=== PATIENT | male | born 1935 | race Caucasian/White ===

== ENCOUNTER 2016-04-01 12:15 | Outpatient (CLI) | payer MEDICARE, OTHER | END 2016-04-01 12:16 | LOC: CARD 12:15 | PROVIDERS: ATTEND Internal Medicine Cardiovascular Disease | DX: I48.91 Unspecified atrial fibrillation (principal) | CPT/HCPCS: G0463 ==

== ENCOUNTER 2016-12-19 18:17 | Emergency (ER) | payer OTHER ==
--- NOTE | 2016-12-19 18:38 | ED Physician Documentation ---
Male Genitourinary Problems - HISTORIAN Historian: patient - HPI Stated Complaint: difficulty urinating Chief Complaint: Male Genitourinary Problems Onset: days ago (yesterday) Duration: continues in ED Severity: moderate - Associated Symptoms Problems Urinating: frequent urination, discomfort w/ urination, burning w/ urination, urgency w/ urination, pain w/ urination. denies: blood in urine - ROS CONST: none. denies: fever GI/: nausea, abdominal pain. denies: vomiting - PAST HX Past History: hypertension, diabetes Type 2, other (BPH) Cardiac Disease: CAD Surgeries/Procedures: other (AAA repair, vavular heart replacement, vasectomy, hydrocele repair. ) Immunizations: pneumovax. denies: influenza - SOCIAL HX Smoking History: non-smoker, quit less than 1 year (1986) Alcohol Use: none Drug Use: none - FAMILY HX Family History: none - REVIEWED ASSESSMENTS Nursing Assessment Reviewed: Yes Vitals Reviewed: Yes <Gianni Bhardwaj - Last Filed: 12/19/16 18:56> <CONNIE LACKEY - Last Filed: 12/19/16 19:28> - HPI Additional Information: Patient states that he has had BPH issues in the past and is on medication for it. Has not had any problems with urination until yesterday post corneal transplant surgery. After waking up he had some difficulties with urinating, was given some medication to help him. He started to have some urinary frequency. Today he has developed some lower abd pain with urinary frequency. No hematuria noted. States that he feels that he is emptying his bladder. Has just been dribbling every 10-15 minutes for most of the day. No fever or chills noted. (Gianni Bhardwaj) - PAST HX Allergies/Adverse Reactions: Allergies Allergy/AdvReac Type Severity Reaction Status Date / Time clopidogrel bisulfate Allergy Verified 12/19/16 18:36 [From Plavix] oxaprozin [From Daypro] Allergy Verified 12/19/16 18:36 oxycodone Allergy Verified 12/19/16 18:36 zolpidem tartrate Allergy Verified 12/19/16 18:36 [From Ambien] Home Medications: Ambulatory Orders Medication Instructions Recorded Acetaminophen [Tylenol Extra 600 mg PO BID PRN 12/19/16 Strength] Apixaban [Eliquis] 5 mg PO BID 12/19/16 Atenolol [Tenormin] 25 mg PO QDAY 12/19/16 Atorvastatin Calcium [Atorvastatin 40 mg PO HS 12/19/16 Calcium] Cholecalciferol (Vitamin D3) 10,000 unit PO BID 12/19/16 [Vitamin D-3] Cranberry Fruit [Cranberry] 400 mg PO HS 12/19/16 Cyanocobalamin (Vitamin B-12) 1,000 mcg SL QDAY 12/19/16 [Vitamin B-12] Docusate Sodium [Colace] 100 mg PO BID 12/19/16 Emollients TOP BID 12/19/16 Eszopiclone [Lunesta] 1 mg PO HS 12/19/16 Finasteride [Proscar] 5 mg PO QDAY 12/19/16 Furosemide [Lasix] 40 mg PO BID 12/19/16 Gluc Mendes/Chondro Mendes A/Vit C/Mn 1 each PO QDAY 12/19/16 [Glucosamine 1,500 Complex Cp] Lactobacillus Acidophilus 1 each PO HS 12/19/16 [Acidophilus] Losartan Potassium [Cozaar] 50 mg PO DAILY 12/19/16 Magnesium Oxide [Magnesium] 400 mg PO HS 12/19/16 Melatonin 3 mg PO HS PRN 12/19/16 Metformin HCl [Metformin HCl ER] 1,000 mg PO BID 12/19/16 Oil Of Oregano 150 mg PO QDAY 12/19/16 Pantothenic Acid 250 mg PO QDAY 12/19/16 Selenium 100 mcg PO [id number] 12/19/16 Sochlor 12/19/16 Tamsulosin HCl [Flomax] 0.4 mg PO [id number] 12/19/16 gliPIZIDE [Glucotrol] 5 mg PO BID 12/19/16 - VITAL SIGNS Vital Signs: Vital Signs Temp Pulse Resp BP Pulse Ox 98.0 F 76 24 159/82 96 12/19/16 18:20 12/19/16 18:20 12/19/16 18:20 12/19/16 18:20 12/19/16 18:20 Progress <Gianni Bhardwaj - Last Filed: 12/19/16 18:56> <CONNIE LACKEY - Last Filed: 12/19/16 19:28> - Progress Progress: 1919, Drained total of 1200 ml urine in two 600 ml aliquots. Feels good he says. (CONNIE LACKEY) - Orders Orders: ED Orders Category Date Time Status Catheter [Urinary catheterization] 1T Care 12/19/16 18:54 Active URINALYSIS Routine Lab 12/19/16 18:55 Ordered Male Genitourinary Problems - EXAM General Appearance: alert, mild distress Abdomen: distended bladder. No: guarding, rebound Neck: nml inspection Respiratory: no resp distress, chest non-tender, breath sounds normal. No: rales, rhonchi CVS: reg rate & rhythm, heart sounds normal, equal pulses Back: non-tender, painless ROM. No: CVA tenderness Neuro/Psych: oriented X3, mood/affect nml, cognition normal Skin: warm/dry, normal color <Gianni Bhardwaj - Last Filed: 12/19/16 18:56> Discharge <Gianni Bhardwaj - Last Filed: 12/19/16 18:56> Decision to Admit: NO Decision Time: 19:23 <CONNIE LACKEY - Last Filed: 12/19/16 19:28> Clincal Impression: Urinary retention Referrals: Gianni Gerard [Primary Care Provider] - 2 Days Additional Instructions: Make an appointment to see your regular provider or your urologist next week. Condition: Good Disposition: 01 HOME, SELF-CARE
[2016-12-19 19:32] VITALS: BP 130/68
[2016-12-20 06:02] LABS: APPEARANCE,URINE CLEAR (CLEAR); COLOR,URINE YELLOW (YELLOW); OCCULT BLOOD,URINE TRACE-INTACT (NEGATIVE); UROBILINOGEN URINE 0.2 Eu (0.2-1.0)
== END 2016-12-19 19:30 | disposition home or self-care (01) ==
LOC: ED 18:17
DX: R33.9 Retention of urine, unspecified (principal)
CPT/HCPCS: 51702; 81002; 99283

== ENCOUNTER 2017-06-02 11:02 | Outpatient (CLI) | payer OTHER | END 2017-06-02 11:03 | LOC: CARD 11:02 | PROVIDERS: ATTEND Internal Medicine Cardiovascular Disease | DX: Z95.2 Presence of prosthetic heart valve (principal); I25.10 Atherosclerotic heart disease of native coronary artery without angina pectoris; I27.0 Primary pulmonary hypertension; R06.00 Dyspnea, unspecified; I50.9 Heart failure, unspecified; I10 Essential (primary) hypertension; E78.5 Hyperlipidemia, unspecified; E11.9 Type 2 diabetes mellitus without complications; J44.9 Chronic obstructive pulmonary disease, unspecified; Z01.810 Encounter for preprocedural cardiovascular examination; Z86.79 Personal history of other diseases of the circulatory system; I48.91 Unspecified atrial fibrillation | CPT/HCPCS: 36415; 83880; 85651; G0463 ==

== ENCOUNTER 2017-09-29 14:07 | Outpatient (CLI) | payer OTHER | END 2017-09-29 14:10 | LOC: CARD 14:07 | PROVIDERS: ATTEND Internal Medicine Cardiovascular Disease | DX: Z95.2 Presence of prosthetic heart valve (principal); I25.10 Atherosclerotic heart disease of native coronary artery without angina pectoris; I27.0 Primary pulmonary hypertension; I50.9 Heart failure, unspecified; I10 Essential (primary) hypertension; E78.5 Hyperlipidemia, unspecified; E11.9 Type 2 diabetes mellitus without complications; J44.9 Chronic obstructive pulmonary disease, unspecified; Z86.79 Personal history of other diseases of the circulatory system; I71.9 Aortic aneurysm of unspecified site, without rupture | CPT/HCPCS: G0463 ==